=== PATIENT | male | born 2000 | race Caucasian/White ===

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

== ENCOUNTER 2020-09-18 08:48 | Emergency (ER) | payer OTHER ==
[~2020-09-18] VITALS: Ht 180.3 cm; Wt 65.8 kg
[2020-09-18 08:50] VITALS: BP 138/80
--- NOTE | 2020-09-18 08:50 | NUR ---
Patient is a 17 y/o male BIB self c/c LLQ abdominal pain x4 days; also c/o n/v/d and fever. Patient denies recent travel PMH: Denies NKA RX: N/A
--- NOTE | 2020-09-18 08:53 | NUR ---
PT TAKEN TO BED 4.
--- NOTE | 2020-09-18 09:00 | NUR ---
Patient ambulated to the restroom with a steady gait to collect urine specimen.
--- NOTE | 2020-09-18 09:10 | NUR ---
Dr. Rocha at the bedside evaluating patient.
[2020-09-18] MEDS: DIPHENOXYLATE /ATROPINE 2.5 MG TAB PO ONE (09:16)
[2020-09-18] MEDS: ONDANSETRON 4 MG ODT PO ONE (09:19)
[2020-09-18] MEDS ORDERED: ONDA-24 SL (09:32)
[2020-09-18] MEDS ORDERED: ATRO1TAB PO (09:32)
[2020-09-18 10:16] VITALS: BP 138/80
--- NOTE | 2020-09-18 10:16 | NUR ---
Patient discharged with v/s stable. Written and verbal after care instructions given and explained. Patient alert, oriented and verbalized understanding of instructions. Ambulatory with steady gait. All questions addressed prior to discharge. ID band removed. Patient advised to follow up with PMD. Rx of zofran ODT, Lomotil given. Patient educated on indication of medication including possible reaction and side effects. Opportunity to ask questions provided and answered.
== END 2020-09-18 10:16 | disposition home or self-care (01) ==
LOC: MED 08:48
DX: R11.2 Nausea with vomiting, unspecified (principal); R19.7 Diarrhea, unspecified; R03.0 Elevated blood-pressure reading, without diagnosis of hypertension; F17.290 Nicotine dependence, other tobacco product, uncomplicated; F12.10 Cannabis abuse, uncomplicated; Z79.899 Other long term (current) drug therapy
CPT/HCPCS: 81002; 99283; Q0162

== ENCOUNTER 2020-12-18 16:49 | Emergency (ER) | payer OTHER ==
[~2020-12-18] VITALS: Ht 180.3 cm; Wt 63.5 kg
[~2020-12-18 16:49] MED LIST: ATRO1TAB PO; ONDA-24 SL
[2020-12-18 17:14] VITALS: BP 138/86
[2020-12-18 18:15] LABS: BASOPHILS % (AUTO) 0.4 % (0.0-2.0); EOSINOPHILS % (AUTO) 0.4 % (0.0-4.0); HEMATOCRIT 45.4 % (36-52); HEMOGLOBIN 15.1 g/dL (12.0-18.0); LYMPHOCYTES # (AUTO) 2.1 K/uL (2.0-11.5); LYMPHOCYTES % (AUTO) 23.7 % (20.5-51.1); MEAN CORPUSCULAR HEMOGLOBIN 31 pg (27-31); MEAN CORPUSCULAR HGB CONC 33 g/dL (33-37); MEAN CORPUSCULAR VOLUME 92.9 fL (80-94); MONOCYTES # (AUTO) 0.5 K/uL (0.8-1.0); MONOCYTES % (AUTO) 6.2 % (1.7-9.3); NEUTROPHILS # (AUTO) 6.1 K/uL (1.8-7.7); NEUTROPHILS % (AUTO) 69.3 % (42.2-75.2); PLATELET COUNT (AUTO) 188 K/uL (140-450); RED BLOOD CELL COUNT(AUTO) 4.88 MIL/uL (4.20-6.10); RED CELL DISTRIBUTION WIDTH 12.9 % (11.6-13.7); WHITE BLOOD COUNT (AUTO) 8.8 K/uL (4.8-10.8)
[2020-12-18 18:31] LABS: ALBUMIN 4.2 g/dL (3.4-5.0); ANION GAP 7.6 (8-16); CREATININE 0.9 mg/dL (0.6-1.3); POTASSIUM 4.6 mmol/L (3.5-5.1); TOTAL BILIRUBIN 0.5 mg/dL (0.0-1.0)
[2020-12-18 18:46] LABS: PROTHROMBIN TIME 9.9 secs (10.8-13.4)
[2020-12-18 19:05] LABS: APPEARANCE,URINE CLEAR (CLEAR); BILIRUBIN,URINE NEGATIVE (NEGATIVE); BLOOD, URINE 1+ (NEGATIVE); COLOR,URINE YELLOW (YELLOW); LEUKOCYTE ESTERASE ,URINE NEGATIVE (NEGATIVE); NITRITE, URINE NEGATIVE (NEGATIVE); PH,URINE 6.5 (5.0-9.0); UGLUCOSE NEGATIVE (NEGATIVE)
--- NOTE | 2020-12-18 19:10 | NUR ---
Ambulated to bed 4
--- NOTE | 2020-12-18 19:25 | NUR ---
20 YO M BIB SELF FOR C/O BLOOD CLOT IN URINE. PT STATES X1 EPISODE THIS AFTERNOON. PT C/O DYSURIA. DENIES FEVER OR CHILLS. PT AMB @ BEDSIDE STEADY GAIT. SKIN INTACT. GURNEY LOCKED IN LOWEST POSITION. ERMD MADE AWARE NKA DENIES PMHX
[2020-12-18 19:40] LABS: RBC,URINE 0-5 /HPF (0-5)
[2020-12-18] MEDS ORDERED: DOXY-690 PO (19:53)
[2020-12-18] MEDS ORDERED: cefTRIAXone 500 MG in LIDOCAINE MPF 1% 1 ML IM ONE (19:55)
[2020-12-18] MEDS ORDERED: cefTRIAXone 500 MG VIAL ONE (19:57)
[2020-12-18] MEDS ORDERED: LIDOCAINE MPF 1% 5 ML ONE (19:58)
[2020-12-18 20:29] VITALS: BP 136/66
--- NOTE | 2020-12-18 20:35 | NUR ---
Patient discharged with v/s stable. Written and verbal after care instructions given and explained. Patient alert, oriented and verbalized understanding of instructions. Ambulatory with steady gait. All questions addressed prior to discharge. ID band removed. Patient advised to follow up with PMD. Rx of DOXYCYCLIN given. Patient educated on indication of medication including possible reaction and side effects. Opportunity to ask questions provided and answered.
== END 2020-12-18 20:20 | disposition home or self-care (01) ==
LOC: MED 16:49
DX: N39.0 Urinary tract infection, site not specified (principal); R31.9 Hematuria, unspecified; F12.10 Cannabis abuse, uncomplicated; Z79.899 Other long term (current) drug therapy
CPT/HCPCS: 36415; 80053; 81001; 85025; 85610; 85730; 87086; 87491; 96372; 99283; J0696; J2001

== ENCOUNTER 2022-03-10 19:17 | Emergency (ER) | payer OTHER ==
[~2022-03-10] VITALS: Ht 162.6 cm; Wt 65.8 kg
[~2022-03-10 19:17] MED LIST changes: +DOXY-690 PO; +ONDA-188 SL; -ONDA-24 SL
[2022-03-10 19:23] VITALS: BP 126/76
--- NOTE | 2022-03-10 19:27 | NUR ---
TO LOBBY A/W BED AMBULATORY
--- NOTE | 2022-03-10 20:20 | NUR ---
PT TAKEN TO BED 9
--- NOTE | 2022-03-10 21:14 | NUR ---
Dr. Haines examining patient.
[2022-03-10] MEDS ORDERED: ALUMINUM HYD/MAG/SIMETHICONE 30 ML UDC PO ONE (21:20)
[2022-03-10 21:54] LABS: BASOPHILS % (AUTO) 0.4 % (0.0-2.0); EOSINOPHILS # (AUTO) 0.1 K/uL (0-0.4); EOSINOPHILS % (AUTO) 0.8 % (0.0-4.0); HEMATOCRIT 43.1 % (36-52); HEMOGLOBIN 14.5 g/dL (12.0-18.0); LYMPHOCYTES # (AUTO) 1.4 K/uL (2.0-11.5); LYMPHOCYTES % (AUTO) 17.5 % (20.5-51.1); MEAN CORPUSCULAR HEMOGLOBIN 30 pg (27-31); MEAN CORPUSCULAR HGB CONC 34 g/dL (33-37); MEAN CORPUSCULAR VOLUME 88.5 fL (80-94); MONOCYTES # (AUTO) 0.9 K/uL (0.8-1.0); MONOCYTES % (AUTO) 11.3 % (1.7-9.3); NEUTROPHILS # (AUTO) 5.5 K/uL (1.8-7.7); PLATELET COUNT (AUTO) 174 K/uL (140-450); RED BLOOD CELL COUNT(AUTO) 4.86 MIL/uL (4.20-6.10); RED CELL DISTRIBUTION WIDTH 13.5 % (11.6-13.7); WHITE BLOOD COUNT (AUTO) 7.9 K/uL (4.8-10.8)
[2022-03-10 22:06] LABS: APPEARANCE,URINE CLEAR (CLEAR); BILIRUBIN,URINE NEGATIVE (NEGATIVE); BLOOD, URINE TRACE-I (NEGATIVE); COLOR,URINE YELLOW (YELLOW); LEUKOCYTE ESTERASE ,URINE TRACE (NEGATIVE); NITRITE, URINE NEGATIVE (NEGATIVE); UGLUCOSE NEGATIVE (NEGATIVE)
[2022-03-10 22:17] LABS: RBC,URINE 0-5 /HPF (0-5)
[2022-03-10 22:28] LABS: ALBUMIN 4.1 g/dL (3.4-5.0); CARBON DIOXIDE 30.3 mmol/L (21-32); CREATININE 0.8 mg/dL (0.6-1.3); POTASSIUM 4.3 mmol/L (3.5-5.1); TOTAL BILIRUBIN 0.4 mg/dL (0.0-1.0)
[2022-03-10] MEDS ORDERED: FAMO-90 PO (23:05)
[2022-03-10] MEDS ORDERED: ONDA-188 SL (23:05)
[2022-03-10] MEDS ORDERED: CEPH-588 PO (23:05)
[2022-03-10 23:08] VITALS: BP 119/84
--- NOTE | 2022-03-10 23:11 | NUR ---
Patient discharged with v/s stable. Written and verbal after care instructions given and explained. Patient alert, oriented and verbalized understanding of instructions. Ambulatory with steady gait. All questions addressed prior to discharge. ID band removed. Patient advised to follow up with PMD. Rx of keflex, pepcid, zofran given. Patient educated on indication of medication including possible reaction and side effects. Opportunity to ask questions provided and answered.
== END 2022-03-10 23:11 | disposition home or self-care (01) ==
LOC: MED 19:17
DX: R10.9 Unspecified abdominal pain (principal); F12.90 Cannabis use, unspecified, uncomplicated; Z79.899 Other long term (current) drug therapy
CPT/HCPCS: 36415; 80053; 81001; 81002; 83690; 85025; 87086; 99283

== ENCOUNTER 2022-11-04 09:45 | Emergency (ER) | payer OTHER ==
[~2022-11-04] VITALS: Ht 172.7 cm; Wt 72.6 kg
[~2022-11-04 09:45] MED LIST changes: +CEPH-588 PO; +FAMO-90 PO
[2022-11-04 10:10] VITALS: BP 127/85; PULSE 89; RESP 18; TEMP 98; O2SAT 98
[2022-11-04 11:37] LABS: APPEARANCE,URINE SL CLOUDY (CLEAR); BILIRUBIN,URINE 1+ (NEGATIVE); BLOOD, URINE 3+ (NEGATIVE); COLOR,URINE BROWN (YELLOW); LEUKOCYTE ESTERASE ,URINE TRACE (NEGATIVE); NITRITE, URINE NEGATIVE (NEGATIVE); UGLUCOSE NEGATIVE (NEGATIVE)
[2022-11-04 12:21] LABS: RBC,URINE 50-80 /HPF (0-5)
[2022-11-04] MEDS ORDERED: CIPR500T4 PO (13:01)
== END 2022-11-04 13:06 | disposition home or self-care (01) ==
LOC: MED 09:45
DX: R30.0 Dysuria (principal); Z79.899 Other long term (current) drug therapy
CPT/HCPCS: 76870; 81001; 87086; 87491; 99284; Q0092

== ENCOUNTER 2023-03-29 10:28 | Emergency (ER) | payer OTHER ==
[~2023-03-29] VITALS: Ht 167.6 cm; Wt 59.0 kg
[~2023-03-29 10:28] MED LIST changes: +CIPR500T4 PO
[2023-03-29 11:03] VITALS: BP 122/91; PULSE 72; RESP 18; TEMP 99; O2SAT 98
[2023-03-29] MEDS ORDERED: ONDANSETRON 4 MG ODT PO ONE (11:25)
[2023-03-29 11:57] LABS: BASOPHILS % (AUTO) 0.2 % (0.0-2.0); HEMATOCRIT 46.3 % (36-52); HEMOGLOBIN 15.4 g/dL (12.0-18.0); LYMPHOCYTES # (AUTO) 1.7 K/uL (2.0-11.5); LYMPHOCYTES % (AUTO) 12.1 % (20.5-51.1); MEAN CORPUSCULAR HEMOGLOBIN 30 pg (27-31); MEAN CORPUSCULAR HGB CONC 33 g/dL (33-37); MEAN CORPUSCULAR VOLUME 89.3 fL (80-94); MONOCYTES # (AUTO) 0.8 K/uL (0.8-1.0); MONOCYTES % (AUTO) 5.6 % (1.7-9.3); NEUTROPHILS # (AUTO) 11.3 K/uL (1.8-7.7); NEUTROPHILS % (AUTO) 82.1 % (42.2-75.2); PLATELET COUNT (AUTO) 197 K/uL (140-450); RED BLOOD CELL COUNT(AUTO) 5.19 MIL/uL (4.20-6.10); RED CELL DISTRIBUTION WIDTH 13.3 % (11.6-13.7); WHITE BLOOD COUNT (AUTO) 13.7 K/uL (4.8-10.8)
[2023-03-29] MEDS ORDERED: ONDANSETRON 4 MG/2 ML VIAL IVP ONE ×2 (12:15→13:50)
[2023-03-29] MEDS ORDERED: NACL 0.9% 1,000 ML IV ONE (12:15)
[2023-03-29 12:17] LABS: ALBUMIN 4.7 g/dL (3.4-5.0); ANION GAP 14.9 (8-16); CALCIUM 9.1 mg/dL (8.5-10.1); CARBON DIOXIDE 28.2 mmol/L (21-32); CREATININE 0.9 mg/dL (0.6-1.3); POTASSIUM 3.1 mmol/L (3.5-5.1); TOTAL BILIRUBIN 1.2 mg/dL (0.0-1.0); TOTAL PROTEIN, SERUM 7.9 g/dL (6.4-8.2)
[2023-03-29 12:56] LABS: APPEARANCE,URINE CLEAR (CLEAR); BILIRUBIN,URINE 1+ (NEGATIVE); BLOOD, URINE 1+ (NEGATIVE); COLOR,URINE YELLOW (YELLOW); LEUKOCYTE ESTERASE ,URINE NEGATIVE (NEGATIVE); NITRITE, URINE NEGATIVE (NEGATIVE); PROTEIN,URINE 1+ (NEGATIVE); UGLUCOSE NEGATIVE (NEGATIVE); UROBILINOGEN,URINE 0.2 EU/dL (0.2 - 1)
[2023-03-29 13:05] LABS: BACTERIA,URINE OCCASSIONAL /HPF (None Seen); SQUAMOUS EPITHELIAL CELL,UR 0-3 (FEW) /LPF (0-3 (FEW)); WBC,URINE 0-5 /HPF (0-5)
[2023-03-29 13:07] LABS: ICTOTEST NEGATIVE (NEGATIVE)
[2023-03-29] MEDS ORDERED: ONDANSETRON 4 MG ODT ONE (13:21)
[2023-03-29] MEDS ORDERED: KETOROLAC 30 MG/ML VIAL IVP ONE (13:50)
[2023-03-29] MEDS ORDERED: HALOPERIDOL IM 5 MG/ML VIAL IM ONE (14:40)
[2023-03-29] MEDS ORDERED: ONDA8TAB87 PO (16:20)
[2023-03-29 16:24] VITALS: BP 122/91; PULSE 72; RESP 18; TEMP 99; O2SAT 98
== END 2023-03-29 16:24 | disposition home or self-care (01) ==
LOC: MED 10:28
DX: R11.2 Nausea with vomiting, unspecified (principal); R10.13 Epigastric pain; F12.90 Cannabis use, unspecified, uncomplicated; R10.12 Left upper quadrant pain; F17.200 Nicotine dependence, unspecified, uncomplicated; Z79.2 Long term (current) use of antibiotics; Z79.899 Other long term (current) drug therapy
CPT/HCPCS: 36415; 80053; 81001; 83690; 85025; 96361; 96372; 96374; 96375; 99284; J1630; J1885; J2405; J7030; Q0162

== ENCOUNTER 2023-08-23 08:25 | Emergency (ER) | payer OTHER ==
[~2023-08-23] VITALS: Ht 180.3 cm; Wt 64.5 kg
[~2023-08-23 08:25] MED LIST changes: +ONDA8TAB87 PO
[2023-08-23 08:47] VITALS: BP 125/88; PULSE 64; RESP 19; TEMP 98.5; O2SAT 100
[2023-08-23] MEDS ORDERED: CARB15DR89 OP (09:27)
[2023-08-23] MEDS ORDERED: ERYT5OIN51 OP (09:27)
== END 2023-08-23 09:49 | disposition home or self-care (01) ==
LOC: MED 08:25
DX: H10.31 Unspecified acute conjunctivitis, right eye (principal); R03.0 Elevated blood-pressure reading, without diagnosis of hypertension; Z79.1 Long term (current) use of non-steroidal anti-inflammatories (NSAID); Z79.899 Other long term (current) drug therapy
CPT/HCPCS: 99283

== ENCOUNTER 2023-09-16 05:20 | Emergency (ER) | payer OTHER ==
[~2023-09-16] VITALS: Ht 180.3 cm; Wt 59.0 kg
[~2023-09-16 05:20] MED LIST changes: +CARB15DR89 OP; +ERYT5OIN51 OP
[2023-09-16 05:36] VITALS: BP 114/75; PULSE 107; RESP 16; TEMP 97.1; O2SAT 99
[2023-09-16 05:43] VITALS: TEMP 97.1
[2023-09-16 05:45] VITALS: O2SAT 98
[2023-09-16] MEDS: NACL 0.9% 1,000 ML IV ONE (05:59)
[2023-09-16] MEDS ORDERED: ONDA-188 SL (06:05)
[2023-09-16] MEDS: diphenhydrAMINE 50 MG/ML VIAL IVP ONE (06:09)
[2023-09-16] MEDS: HALOPERIDOL IM 5 MG/ML VIAL IVP ONE (06:10)
[2023-09-16] MEDS ORDERED: FAMO-92 PO (06:16)
[2023-09-16] MEDS: FAMOTIDINE 20 MG/2 ML VIAL IVP ONE (06:25)
[2023-09-16 06:27] LABS: BASOPHILS % (AUTO) 0.2 % (0.0-2.0); EOSINOPHILS % (AUTO) 0.2 % (0.0-4.0); HEMATOCRIT 46.5 % (36-52); HEMOGLOBIN 15.8 g/dL (12.0-18.0); LYMPHOCYTES # (AUTO) 1.7 K/uL (2.0-11.5); LYMPHOCYTES % (AUTO) 15.2 % (20.5-51.1); MEAN CORPUSCULAR HEMOGLOBIN 30 pg (27-31); MEAN CORPUSCULAR HGB CONC 34 g/dL (33-37); MEAN CORPUSCULAR VOLUME 88.4 fL (80-94); MONOCYTES # (AUTO) 0.8 K/uL (0.8-1.0); MONOCYTES % (AUTO) 7.5 % (1.7-9.3); NEUTROPHILS # (AUTO) 8.5 K/uL (1.8-7.7); NEUTROPHILS % (AUTO) 76.9 % (42.2-75.2); PLATELET COUNT (AUTO) 190 K/uL (140-450); RED BLOOD CELL COUNT(AUTO) 5.26 MIL/uL (4.20-6.10); RED CELL DISTRIBUTION WIDTH 13.2 % (11.6-13.7)
[2023-09-16 06:42] LABS: ANION GAP 12.6 (8-16); CALCIUM 8.8 mg/dL (8.5-10.1); CARBON DIOXIDE 29.2 mmol/L (21-32); CREATININE 0.9 mg/dL (0.6-1.3)
[2023-09-16 06:51] LABS: POTASSIUM 2.8 mmol/L (3.5-5.1)
[2023-09-16] MEDS: POTASSIUM CHLORIDE 10 MEQ TABER PO ONE (06:59)
[2023-09-16 07:35] VITALS: BP 137/99; PULSE 66; RESP 18; O2SAT 99
== END 2023-09-16 07:35 | disposition home or self-care (01) ==
LOC: MED 05:20
DX: K29.70 Gastritis, unspecified, without bleeding (principal); R10.13 Epigastric pain; R11.15 Cyclical vomiting syndrome unrelated to migraine; Z79.2 Long term (current) use of antibiotics; Z79.899 Other long term (current) drug therapy
CPT/HCPCS: 36415; 80048; 83690; 85025; 96361; 96374; 96375; 99284; J1200; J1630; J3490

== ENCOUNTER 2024-01-11 19:59 | Emergency (ER) | payer OTHER ==
[~2024-01-11] VITALS: Ht 180.3 cm; Wt 65.8 kg
[~2024-01-11 19:59] MED LIST changes: +FAMO-92 PO
[2024-01-11 20:35] VITALS: BP 106/68; PULSE 56; RESP 16; TEMP 98; O2SAT 100
[2024-01-11 21:22] LABS: APPEARANCE,URINE CLEAR (CLEAR); BILIRUBIN,URINE 1+ (NEGATIVE); BLOOD, URINE TRACE-I (NEGATIVE); COLOR,URINE YELLOW (YELLOW); LEUKOCYTE ESTERASE ,URINE NEGATIVE (NEGATIVE); NITRITE, URINE NEGATIVE (NEGATIVE); PROTEIN,URINE NEGATIVE (NEGATIVE); UGLUCOSE NEGATIVE (NEGATIVE); UROBILINOGEN,URINE 0.2 EU/dL (0.2 - 1)
[2024-01-11 21:25] LABS: BASOPHILS % (AUTO) 0.3 % (0.0-2.0); EOSINOPHILS # (AUTO) 0.1 K/uL (0-0.4); EOSINOPHILS % (AUTO) 0.9 % (0.0-4.0); HEMOGLOBIN 15.1 g/dL (12.0-18.0); LYMPHOCYTES % (AUTO) 36.4 % (20.5-51.1); MEAN CORPUSCULAR HEMOGLOBIN 30 pg (27-31); MEAN CORPUSCULAR HGB CONC 33 g/dL (33-37); MEAN CORPUSCULAR VOLUME 90.5 fL (80-94); MONOCYTES # (AUTO) 0.6 K/uL (0.8-1.0); MONOCYTES % (AUTO) 7.6 % (1.7-9.3); NEUTROPHILS # (AUTO) 4.5 K/uL (1.8-7.7); NEUTROPHILS % (AUTO) 54.8 % (42.2-75.2); PLATELET COUNT (AUTO) 174 K/uL (140-450); RED BLOOD CELL COUNT(AUTO) 4.97 MIL/uL (4.20-6.10); RED CELL DISTRIBUTION WIDTH 12.9 % (11.6-13.7); WHITE BLOOD COUNT (AUTO) 8.2 K/uL (4.8-10.8)
[2024-01-11 21:26] LABS: BACTERIA,URINE None Seen /HPF (None Seen); RBC,URINE 0-5 /HPF (0-5); SQUAMOUS EPITHELIAL CELL,UR 0-3 (FEW) /LPF (0-3 (FEW)); WBC,URINE 0-5 /HPF (0-5)
[2024-01-11 21:27] LABS: ICTOTEST NEGATIVE (NEGATIVE)
[2024-01-11 21:33] LABS: AMPHETAMINE, URINE NEGATIVE ng/ml (NEG <=1000); BARBITURATE, URINE NEGATIVE ng/ml (NEG <=200); BENZODIAZEPINE, URINE NEGATIVE ng/mL (NEG <=200); CANNABINOID, URINE POSITIVE ng/mL (NEG <=50); COCAINE, URINE NEGATIVE ng/mL (NEG <=300); OPIATE, URINE NEGATIVE ng/mL (NEG <=2000); PHENCYCLIDINE SCREEN,URINE NEGATIVE ng/mL (NEG <=25)
[2024-01-11 21:34] VITALS: BP 106/68; PULSE 56; RESP 16; TEMP 98; O2SAT 98
[2024-01-11 21:40] LABS: ANION GAP 11.4 (8-16); CALCIUM 9.1 mg/dL (8.5-10.1); CREATININE 0.9 mg/dL (0.6-1.3); POTASSIUM 3.4 mmol/L (3.5-5.1)
[2024-01-11 21:47] LABS: ALBUMIN 4.5 g/dL (3.4-5.0); BILIRUBIN,DIRECT 0.2 mg/dL (0.0-0.3); TOTAL BILIRUBIN 0.8 mg/dL (0.0-1.0); TOTAL PROTEIN, SERUM 7.4 g/dL (6.4-8.2)
[2024-01-11 23:50] VITALS: O2SAT 98
[2024-01-12] MEDS ORDERED: METR-435 PO (01:34)
== END 2024-01-12 01:38 | disposition home or self-care (01) ==
LOC: MED 19:59
DX: R19.7 Diarrhea, unspecified (principal); R11.10 Vomiting, unspecified; R42 Dizziness and giddiness; R53.1 Weakness; Z79.899 Other long term (current) drug therapy
CPT/HCPCS: 36415; 80048; 80076; 80305; 81001; 82150; 83690; 85025; 99284